=== PATIENT | female | born 1950 | race Caucasian/White ===

== ENCOUNTER 2016-08-08 14:47 | Inpatient (IN) ==
[2016-08-08] MEDS ORDERED: NS + KCL 40 MEQ 1,000 ML IV SCH ×2 (16:36→17:15)
[2016-08-08] MEDS: ZOFRAN IV PRN (17:12)
[2016-08-08] MEDS: SODIUM CHLORIDE 0.9% INJ SCH (17:12)
[2016-08-08] MEDS: PROTONIX IV SCH (17:12)
[2016-08-08] MEDS ORDERED: CARDIZEM 100 MG/NS 100 MG/100 ML IVPB IV SCH (17:19)
--- NOTE | 2016-08-08 17:34 | EKG Report ---
Test Performed on : 08/08/2016 5:10:24 PM Test Reason : HYPOKALEMIA Blood Pressure : / mmHG Vent. Rate : 094 BPM Atrial Rate : 096 BPM P-R Int : 000 ms QRS Dur : 072 ms QT Int : 446 ms P-R-T Axes : 000 051 092 degrees QTc Int : 557 ms sinus rhythm with sinus arryhmia and pacs Septal infarct , age undetermined ST \T\ T wave abnormality, consider anterolateral ischemia Prolonged QT Abnormal ECG No previous ECGs available Confirmed by Donavon Morales MD ([id number]) on 08/14/2016 10:14:29 PM
[2016-08-08 17:39] LABS: BASO% 0.1 % (0.0-0.8); HEMATOCRIT 32.3 % (37.0-47.0); HEMOGLOBIN 11.5 g/dL (12.0-16.0); IMM GRAN% 0.4 % (0.0-0.5); LYMPH# 3.11 X1000 (1.2-3.4); LYMPH% 12.4 % (20.5-51.1); MANUAL DIFF NEEDED? YES; MCH 30.8 PG (27-31); MCHC 35.6 g/dL (33-37); MCV 86.6 FL (81-99); MONO# 1.44 X1000 (0.11-0.59); MONO% 5.7 % (1.7-9.3); MPV 10.5 FL (7.4-10.4); NEUT% 81.4 % (42.2-75.2); PLT 434 X1000 (130-400); RBC 3.73 XMIL (4.2-5.4)
[2016-08-08 17:48] LABS: INR 1.15 (0.86-1.15)
[2016-08-08 17:53] LABS: AMYLASE 138 U/L (20-200); LIPASE 162 U/L (13-60)
[2016-08-08 17:55] LABS: ALBUMIN 4.3 g/dL (3.5-5.0); CALCIUM 7.2 mg/dL (8.8-10.2); TOTAL BILIRUBIN 0.2 mg/dL (0.20-1.00); TOTAL PROTEIN 8.3 g/dL (6.3-8.3)
[2016-08-08 18:00] LABS: MAGNESIUM 0.4 mg/dL (1.5-2.7); POTASSIUM 2.3 mmol/L (3.5-5.1)
[2016-08-08 18:32] LABS: LYMPHS 12 % (21-51)
[2016-08-08] MEDS: ZYVOX 600 MG/D5W 600 MG/300 ML IVPB IV SCH (18:40)
[2016-08-08] MEDS ORDERED: MAGNESIUM SULFATE 2 GM/S.W.I. 2 GM/50 ML IVPB IV ONE (18:47)
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
[2016-08-08 19:35] LABS: URINE SOURCE CATH
[2016-08-08 19:46] LABS: BILIRUBIN URINE 1+ (NEGATIVE); BLOOD URINE 1+ (NEGATIVE); CLARITY SL. CLOUDY (CLEAR); COLOR YELLOW; GLUCOSE URINE NEGATIVE (NEGATIVE); LEUKOCYTES URINE 1+ (NEGATIVE); NITRITE URINE NEGATIVE (NEGATIVE); PH URINE 6.5; PROTEIN URINE 1+(30 mg/dL) mg/dL (NEGATIVE); SP GRAVITY URINE 1.015; URINE MICROSCOPIC NEEDED? YES; UROBILINOGEN URINE NORMAL
[2016-08-08 19:57] LABS: URINE CAST NONE SEEN /LPF; URINE CRYSTAL URIC ACID PRESENT /HPF; URINE EPITHELIAL CELLS >10 /HPF (<10); URINE RBC <10 /HPF (<10)
[2016-08-08] MEDS: LOVENOX SUBQ SCH (20:14)
[2016-08-08] MEDS: ZOSYN 2.25 GM/NS 2.25 GM/50 ML IVPB IV SCH (20:15)
[2016-08-08] MEDS ORDERED: NS 1,000 ML IV ONE ×2 (20:30)
[2016-08-08] MEDS: ATIVAN IV PRN (21:12)
[2016-08-08] MEDS ORDERED: CALCIUM GLUCONATE 2 GM in NS 100 ML IV ONE (23:00)
[2016-08-08 23:14] LABS: MAGNESIUM 1.5 mg/dL (1.5-2.7); POTASSIUM 3.4 mmol/L (3.5-5.1)
[2016-08-08 23:31] LABS: CALCIUM 6.3 mg/dL (8.8-10.2)
[2016-08-08] MEDS ORDERED: CALCIUM GLUCONATE IV PUSH ONE ×2 (23:33→23:45)
[2016-08-09] MEDS: ZOSYN 2.25 GM/NS 2.25 GM/50 ML IVPB IV SCH ×4 (03:01→21:49)
[2016-08-09] MEDS: ATIVAN IV PRN (03:12)
[2016-08-09] MEDS: PROTONIX IV SCH ×2 (04:15→17:20)
[2016-08-09] MEDS: ZYVOX 600 MG/D5W 600 MG/300 ML IVPB IV SCH ×2 (05:16→20:10)
[2016-08-09 06:13] LABS: HEMATOCRIT 25.7 % (37.0-47.0); HEMOGLOBIN 8.5 g/dL (12.0-16.0); MCH 29.4 PG (27-31); MCHC 33.1 g/dL (33-37); MCV 88.9 FL (81-99); MPV 10.6 FL (7.4-10.4); RBC 2.89 XMIL (4.2-5.4)
[2016-08-09 06:30] LABS: AMYLASE 106 U/L (20-200); LIPASE 228 U/L (13-60)
[2016-08-09 07:12] LABS: ALBUMIN 3.1 g/dL (3.5-5.0); CALCIUM 6.6 mg/dL (8.8-10.2); MAGNESIUM 1.3 mg/dL (1.5-2.7); POTASSIUM 3.1 mmol/L (3.5-5.1); TOTAL BILIRUBIN 0.3 mg/dL (0.20-1.00)
[2016-08-09] MEDS ORDERED: CALCIUM GLUCONATE 2 GM in NS 100 ML IV ONE ×2 (07:45→09:15)
--- NOTE | 2016-08-09 09:13 | Diag Imaging Result Document ---
PROCEDURE NAME: ABDOMEN/PELVIS W/O CONTRAST - 08/08/2016 CT SCAN OF THE ABDOMEN AND PELVIS WITHOUT CONTRAST: CLINICAL HISTORY: Significant for previous hysterectomy, cholecystectomy, appendectomy, and colon surgery. FINDINGS: Preliminary interpretation was given by the senior construction project manager radiologist. There is a mild reticular nodular infiltrate within the right lower lobe and right middle lobe. No effusion. The heart size is within normal limits. There are cholecystectomy clips and bowel clips compatible with previous gastric bypass procedure. There is no bowel distention to suggest obstruction. No free air is appreciated. There is a Del Valle catheter within the bladder, which is decompressed. There is an unusual postoperative appearance to the cecum. There is an area of colonic narrowing versus nondistention within the distal transverse colon. Evaluation of the solid visceral organs is limited by lack of IV contrast. There is atherosclerotic calcification. IMPRESSION: 1. Indeterminate reticular nodular infiltrates within the right lower lobe and right middle lobe, which may indicate pneumonia. 2. Somewhat atypical appearance of the cecum and focal area of narrowing versus nondistention within the distal transverse colon. Correlation with colonoscopy could be considered. 3. Findings consistent with previous gastric bypass procedure with no evidence for obstruction. 4. Evaluation is limited by lack of IV and oral contrast, as per the ordering ED physician.
[2016-08-09] MEDS: NORCO-5 PO PRN (10:13)
[2016-08-09] MEDS ORDERED: D50W SYRINGE ONE (12:04)
[2016-08-09] MEDS ORDERED: EPINEPHRINE SYRINGE ONE (12:04)
[2016-08-09] MEDS: SODIUM BICARBONATE 8.4% 150 MEQ in D5W 1,000 ML IV SCH (14:10)
--- NOTE | 2016-08-09 14:48 | PROGRESS NOTE ---
DATE: 08/09/2016 SUBJECTIVE: Patient states she is feeling some better today. She denies any nausea, vomiting, palpitations. OBJECTIVE: Vital Signs: Blood pressure 83/56 with a heart rate of 74, respirations are 20, temperature is 98.2 degrees with room air saturations of 100%. Cardiovascular: Regular rate and rhythm. S1 and S2 appreciated. Pulmonary: Breath sounds are clear with no increased work of breathing noted. Gastrointestinal: Abdomen is soft, nontender, nondistended with bowel sounds in all 4 quadrants. Extremities: No clubbing, cyanosis, or edema. Calves are nontender. Pulses are palpable x4. DIAGNOSTICS: WBC is 14.8, with a hemoglobin of 8.5, hematocrit 25.7, and platelets of 261,000. Sodium is 137, potassium 3.1. BUN 38, creatinine 4.8, with a glucose of 105. Calcium is 6.6, corrected is around 6.9, lipase is 228. ASSESSMENT AND PLAN: 1. Atrial fibrillation with RVR. This has resolved. She is currently in sinus rhythm. She does have a history of atrial fibrillation, taking no medications and no anticoagulation. We will consult Cardiology for management. 2. Hypokalemia. Will trend electrolytes and replete as necessary. 3. Acute kidney injury. Creatinine is down to 4.8. We will consult Nephrology and continue with her current treatment in the interim. 4. Leukocytosis. This is improving. 5. Pancreatitis presumed due to elevated lipase. Will start giving some sips and advance diet as tolerated. CT of the abdomen and pelvis, Radiology read is pending. 6. Vomiting and diarrhea. This has resolved. 7. History of pulmonary embolus and DVT. Aware. 8. History of GI bleeding gastric ulcer. We will continue with Protonix. She is noted to have an hemoglobin and hematocrit of 8.5 and 25.7. This was 11.5 and 32 yesterday. She is 4 L positive. This is most likely from dilution. We will recheck this afternoon and trend labs. Dictated by SILVIA Waggoner for Christiano Robles MD cc: SILVIA Waggoner MD
[2016-08-09 15:19] LABS: HEMATOCRIT 24.6 % (37.0-47.0); HEMOGLOBIN 8.5 g/dL (12.0-16.0); MCH 30.9 PG (27-31); MCHC 34.6 g/dL (33-37); MCV 89.5 FL (81-99); MPV 10.4 FL (7.4-10.4); RBC 2.75 XMIL (4.2-5.4)
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
[2016-08-09 16:43] LABS: UR CREAT RANDOM 191.5 mg/dL (11-20); UR PROT RANDOM 76.3 mg/dL
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
[2016-08-09] MEDS: XANAX PO SCH ×2 (17:20→22:43)
[2016-08-09] MEDS: SODIUM CHLORIDE 0.9% INJ SCH (17:20)
[2016-08-09] MEDS: LOVENOX SUBQ SCH (18:36)
[2016-08-09] MEDS ORDERED: NEURONTIN PO SCH (21:00)
[2016-08-09] MEDS ORDERED: XANAX PO SCH (21:00)
[2016-08-10] MEDS: NORCO-5 PO PRN ×3 (01:18→15:10)
[2016-08-10] MEDS: ZOSYN 2.25 GM/NS 2.25 GM/50 ML IVPB IV SCH ×4 (02:25→20:44)
[2016-08-10] MEDS: XANAX PO SCH ×4 (04:44→23:20)
[2016-08-10] MEDS: PROTONIX IV SCH ×2 (04:44→17:22)
[2016-08-10] MEDS: SODIUM BICARBONATE 8.4% 150 MEQ in D5W 1,000 ML IV SCH ×2 (04:44→20:43)
[2016-08-10 05:05] LABS: HEMATOCRIT 21.9 % (37.0-47.0); HEMOGLOBIN 7.5 g/dL (12.0-16.0); MCH 30.4 PG (27-31); MCHC 34.2 g/dL (33-37); MCV 88.7 FL (81-99); MPV 10.4 FL (7.4-10.4); RBC 2.47 XMIL (4.2-5.4)
[2016-08-10 05:14] LABS: ALBUMIN 2.8 g/dL (3.5-5.0)
[2016-08-10 05:16] LABS: CALCIUM 6.7 mg/dL (8.8-10.2); POTASSIUM 2.3 mmol/L (3.5-5.1)
[2016-08-10] MEDS ORDERED: POTASSIUM CHLORIDE 20 MEQ/SWI 20 MEQ/100 ML IVPB ONE (05:28)
[2016-08-10] MEDS: POTASSIUM CHLORIDE 20 MEQ/SWI 20 MEQ/100 ML IVPB IV SCH ×4 (05:39→20:00)
[2016-08-10] MEDS: ZYVOX 600 MG/D5W 600 MG/300 ML IVPB IV SCH ×2 (05:40→19:26)
[2016-08-10] MEDS ORDERED: CALCIUM GLUCONATE 2 GM in NS 100 ML IV ONE (10:00)
--- NOTE | 2016-08-10 12:28 | PROGRESS NOTE ---
DATE: 08/10/2016 SUBJECTIVE: The patient notes that her abdominal pain is better. She still, however, is having some. She denies any current fevers or chills. She denies any dysuria or frequency. PHYSICAL: Temperature 98, pulse 58, respiratory 12. BP 102/70 to 92/61. Saturation 99% on room air. General: The patient is awake, alert. She is currently in no respiratory distress. She is sitting in bed watching television with her . HEENT: Normocephalic, atraumatic. Neck: Supple. CV: Regular rate. Chest relatively clear. Abdomen is soft, much less tender to palpation. Positive bowel sounds. Extremities: Moves all extremities. Neurologic: No changes. DIAGNOSTIC DATA: WBC 8, hemoglobin and hematocrit 7.5 and 21. Sodium 137, potassium 2.3, creatinine 3.6. BUN 29, calcium 6.7, albumin at 2.8. ASSESSMENT: 1. Acute renal failure. Continues to improve. We will continue sodium bicarb, IV fluids. 2. Hypokalemia. We will replace and recheck at 1. 3. Hypocalcemia. We will replace and recheck. 4. Anemia, likely secondary to her acute renal disease. We will type cross and transfuse one unit. We will check Hemoccult although she has no signs or symptoms currently of bleeding and further orders as needed. Hopefully, can move out of the ICU later this afternoon. We will advance diet as tolerated if her Hemoccults are negative. cc: Christiano Robles MD
[2016-08-10 13:38] LABS: CALCIUM 7.4 mg/dL (8.8-10.2)
[2016-08-10 13:40] LABS: POTASSIUM 2.2 mmol/L (3.5-5.1)
--- NOTE | 2016-08-10 14:50 | PROGRESS NOTE ---
DATE: 08/10/2016 SUBJECTIVE: Patient resting in bed. She states that she has been able to eat some, but she has not been able to sleep. OBJECTIVE: Vital signs: Temperature 98, pulse 58, respiratory rate 12, blood pressure 107/55, intake 2.8 liters, output 1.1 liters. General: Elderly female resting in bed. No acute distress. HEENT: Normocephalic, atraumatic. Oral mucosa is moist. Dentition poor. Neck: Supple. Trachea midline. No JVD noted. Cardiovascular: Irregular rate and rhythm. Rate controlled. No murmur appreciated. Pulmonary: Equal excursion. She is clear bilaterally. Abdomen: Soft, positive bowel sounds. Genitourinary: She has Del Valle catheter, yellow urine. Extremities: No clubbing, cyanosis, or edema. Is moving all extremities. Integumentary: Skin is warm and dry without rash or lesion. LABORATORY DATA: WBC of 8.6, hemoglobin 7.5, sodium 137, potassium 2.3, CO2 19 , BUN 29, creatinine 3.6, calcium 6.7. She had an FENA score of 0.2%. ASSESSMENT AND PLAN: 1. Acute kidney injury, likely secondary to fluid volume depletion. Her creatinine and renal function have improved significantly since admission with administration of IV fluids. We will continue these overnight. Check labs again in the morning. There is no indication for dialysis. 2. Electrolytes, acid-base balance. These are acceptable. We changed her over to bicarbonate yesterday. Her potassium is low, but this appears to have been repleted already by Primary. Check labs again in the morning. 3. Anemia. This has been stable, followed by Primary. 4. Leukocytosis, followed by Primary. Dictated by SILVIA Rodgers for Se Jeffries MD Data reviewed, discussed with Ryan on 08/10/16. I agree with the above assessment and plan of care. cc: Se Jeffries MD [facility]
[2016-08-10] MEDS ORDERED: KLOR-CON PO ONE (16:15)
[2016-08-10] MEDS ORDERED: NS 1,000 ML IV ONE (16:35)
[2016-08-10 18:56] LABS: OCCULT BLOOD 1 NEGATIVE (NEGATIVE)
[2016-08-10] MEDS: LOVENOX SUBQ SCH (19:26)
[2016-08-10] MEDS: NORCO-10 PO PRN (20:44)
[2016-08-10] MEDS: ZOFRAN IV PRN (23:53)
[2016-08-11] MEDS: NORCO-5 PO PRN ×3 (00:30→10:55)
[2016-08-11] MEDS: ZOSYN 2.25 GM/NS 2.25 GM/50 ML IVPB IV SCH ×4 (02:45→20:21)
[2016-08-11] MEDS: XANAX PO SCH ×4 (05:09→22:19)
[2016-08-11] MEDS: PROTONIX IV SCH (05:09)
[2016-08-11] MEDS: ZYVOX 600 MG/D5W 600 MG/300 ML IVPB IV SCH (05:30)
[2016-08-11 06:39] LABS: HEMATOCRIT 29.1 % (37.0-47.0); HEMOGLOBIN 9.6 g/dL (12.0-16.0); MCH 28.8 PG (27-31); MCV 87.4 FL (81-99); MPV 10.7 FL (7.4-10.4); RBC 3.33 XMIL (4.2-5.4)
[2016-08-11 07:00] LABS: ALBUMIN 2.5 g/dL (3.5-5.0); POTASSIUM 3.1 mmol/L (3.5-5.1); TOTAL BILIRUBIN 0.3 mg/dL (0.20-1.00); TOTAL PROTEIN 5.5 g/dL (6.3-8.3)
[2016-08-11 07:03] LABS: CALCIUM 6.5 mg/dL (8.8-10.2)
[2016-08-11] MEDS ORDERED: KLOR-CON PO SCH (09:00)
[2016-08-11] MEDS: CALTRATE 600 + D PO SCH ×2 (10:55→20:13)
[2016-08-11] MEDS ORDERED: CALCIUM GLUCONATE 2 GM in NS 100 ML IV ONE (12:30)
--- NOTE | 2016-08-11 13:14 | PROGRESS NOTE ---
DATE: 08/11/2016 SUBJECTIVE: Patient notes she feels much better this morning. She has not having any shaking chills. Denies any nausea, vomiting. Denies any chest pain. Denies any GI or issues currently. OBJECTIVE: Vital signs: Temperature 98 degrees, pulse 62, respiratory 14, BP 129/70, saturation 99% on room air. General: Patient is awake, alert, oriented. She is pleasant to talk with. Speech is regular. Memory is intact. Neck: Supple. CV: Regular rate. Chest: Relatively clear. Abdomen: Soft, nontender. Extremities: Moves all extremities. Neurologic: No changes. DIAGNOSTIC DATA: CBC: Improved hemoglobin and hematocrit at 9 and 29 after 1 unit transfusion. Hypokalemia, improving; potassium currently 3.1. Calcium at 6.5. ASSESSMENT: 1. Hypocalcemia. We will start patient on calcium 600 twice a day. 2. Moderate protein calorie malnutrition. Continue to encourage p.o. intake. 3. Acute renal failure. Serum creatinine continues to improve. Was 6.0 on admit, currently at 2.1. 4. Metabolic acidosis secondary to her renal failure. Carbon dioxide was 12, currently is 26; therefore, we will stop her bicarb drip. 5. Hypokalemia. Potassium was 2.2, currently is 3.1. Will replace p.o. 6. Anemia secondary to her acute renal failure. She has no signs nor symptoms of bleeding. She has been heme negative so far. Hemoglobin and hematocrit are more stable after 1 unit of transfusion. PLAN: We will transfer patient to the floor. Will replace her potassium orally. Will replace her calcium orally. Will recheck both of these in the a.m. Should it be improved even further, hopefully we can discharge her home. At this point will stop her linezolid and only continue her Zosyn. We will not continue IV fluids at this point as she is eating and drinking well. TIME SPENT: 40 minutes spent in total care. cc: Christiano Robles MD
[2016-08-11] MEDS ORDERED: NS 500 ML ONE (20:08)
[2016-08-11] MEDS: NORCO-10 PO PRN (20:12)
[2016-08-11] MEDS: TENORMIN PO SCH ×2 (20:12→20:17)
[2016-08-11] MEDS: ZOFRAN IV PRN (20:13)
[2016-08-11] MEDS: LOVENOX SUBQ SCH (20:13)
[2016-08-12] MEDS: NORCO-10 PO PRN (03:36)
[2016-08-12] MEDS: XANAX PO SCH ×3 (03:37→11:03)
[2016-08-12] MEDS: ZOSYN 2.25 GM/NS 2.25 GM/50 ML IVPB IV SCH (03:51)
[2016-08-12 06:02] LABS: HEMATOCRIT 31.8 % (37.0-47.0); HEMOGLOBIN 10.5 g/dL (12.0-16.0); MCH 29.5 PG (27-31); MCV 89.3 FL (81-99); MPV 10.6 FL (7.4-10.4); RBC 3.56 XMIL (4.2-5.4)
[2016-08-12 06:24] LABS: ALBUMIN 2.5 g/dL (3.5-5.0); POTASSIUM 2.8 mmol/L (3.5-5.1)
[2016-08-12] MEDS ORDERED: KLOR-CON PO ONE (06:30)
[2016-08-12] MEDS ORDERED: CALCIUM GLUCONATE 2 GM in NS 100 ML IV ONE ×2 (06:32→08:30)
[2016-08-12 07:45] VITALS: BP 116/79
[2016-08-12] MEDS: CALTRATE 600 + D PO SCH (08:34)
[2016-08-12] MEDS: TENORMIN PO SCH (08:34)
--- NOTE | 2016-08-13 06:31 | DISCHARGE SUMMARY ---
ADMISSION DATE: 08/08/2016 DISCHARGE DATE: 08/12/2016 DISCHARGE DIAGNOSES: 1. Acute renal failure. Serum creatinine 6.0 on admit, 1.8 on discharge secondary to volume depletion. 2. Significant volume depletion resolved. 3. Hypokalemia. Potassium remained difficult to replace during the hospital stay. Currently she will be discharged home on potassium. 4. Hypocalcemia. Calcium was replaced multiple times during the hospital. She will also be discharged home on calcium. 5. Acute volume depletion. BUN was 43 on admit, 13 on discharge. 6. Metabolic acidosis secondary to acute renal failure and volume depletion. Her carbon dioxide was 12 on admit. She was given sodium bicarb drip via IV. Resolved on discharge. 7. Atrial fibrillation with rapid ventricular response. Easily controlled. 8. Leukocytosis resolved. 9. Acute pancreatitis with elevated lipase resolved. 10. Vomiting and diarrhea resolved. 11. History of pulmonary embolus, noncontributory. 12. Anemia. She did require 1 unit transfusion as her hemoglobin and hematocrit had dropped. This was felt to be secondary to her acute renal failure as well as volume repletion. 13. Chronic neuropathy. 14. Chronic anxiety and depression. PRIMARY CARE PHYSICIAN: Dr. Douglas Bahena. CONSULTATIONS: Nephrology. BRIEF HOSPITAL COURSE: The patient is a 66-year-old female who was admitted as on the [facility] and treated in usual fashion. She was placed on IV fluids, IV antibiotics, and kept NPO. Her kidney function slowly started to improve. Nephrology was consulted. Placed her on sodium bicarb, given her acute metabolic acidosis. Over the next few days this continued to improve. Her creatinine decreased to 2.1. Her bicarb increased to 26, her sodium bicarb drip was stopped and both continued to improve. She did have trouble with potassium and calcium during the hospital stay and required multiple replacement attempts. On discharge, both are still low but she will be discharged home on p.o. Her hemoglobin and hematocrit continued to climb after her transfusion after her renal function improved; on discharge was 10 and 31. DISPOSITION: The patient will be discharged home one potassium 40 once a day, calcium with vitamin D 600 b.i.d. She will follow up in 2-[address] Bahena to recheck both of these. No other changes made on her chronic home medications. She was not restarted on her Restoril, Seroquel, or BuSpar while she was in the hospital. However she did continue her atenolol 50 b.i.d., Xanax, gabapentin 600 b.i.d., and Hosmer p.r.n. TIME SPENT WITH PATIENT: 35 minutes was spent in discharge planning and instructions. cc: Christiano Robles MD
--- NOTE | 2016-08-14 09:04 | ECHO REPORT ---
PROCEDURE NAME: Echo Spec/Color Dop W/O Contra - 08/09/2016 MEASUREMENTS: Left ventricular end-diastolic diameter 4.1, systolic diameter 2.6, posterior wall thickness 0.8, septal thickness 0.8, left atrium 3.2, aortic root 3.1. SUMMARY: 1. Adequate quality study. Study submitted for interpretation on 08/13/2016. 2. Aortic valve is trileaflet and opens normally on 2-dimensional images. Mitral, tricuspid and pulmonic valves are without structural abnormality with trace mitral regurgitation and trace tricuspid regurgitation. The estimated systolic PA pressure by Doppler is 55-60 mmHg. Moderate to severe pulmonary hypertension suggested. The aortic root is normal in size. 3. Normal left ventricular dimensions demonstrated. Estimated left ejection fraction is 65%. No regional wall motion abnormalities are evident. Left atrium, right atrium, and right ventricle are normal in size with preserved right ventricular systolic function. 4. No pericardial effusion. 5. Appearance of inferior vena cava suggests normal central venous pressure. 6. Sinus rhythm on study. CONCLUSIONS: 1. Trace mitral regurgitation and trace tricuspid regurgitation. 2. Moderate to severe pulmonary hypertension. 3. Normal left ventricular function without wall motion abnormalities evident. cc: MD Cande Patel CRNP
== END 2016-08-12 11:35 | disposition home or self-care (01) ==
LOC: P.DIRADM 14:47 → P.MEDSURG 14:51 → P.ICU 17:49 → P.MEDSURG 08-11 17:46
PROVIDERS: ATTEND Family Medicine

== ENCOUNTER 2016-09-11 11:16 | Inpatient (IN) ==
[2016-09-11] MEDS ORDERED: TYLENOL PO PRN (15:10)
[2016-09-11] MEDS ORDERED: ZOFRAN IV PRN (15:10)
--- NOTE | 2016-09-11 15:46 | Diag Imaging Result Doc PS360 ---
EXAM: HEAD W/O CONTRAST HISTORY: ams TECHNIQUE: Dose reduction protocol COMPARISON: None. FINDINGS: No parenchymal hemorrhage. No epidural or subdural hematoma. No subarachnoid hemorrhage. No mass identified on this noncontrasted exam. No hydrocephalus. No sinus opacification. IMPRESSION: No hemorrhage. Negative brain CT without contrast. Electronically signed by Tho Barajas 09/11/2016 3:44 PM
[2016-09-11 16:00] LABS: MANUAL DIFF NEEDED? NO
--- NOTE | 2016-09-11 16:12 | HISTORY AND PHYSICAL ---
PRIMARY CARE PHYSICIAN: Dr. Douglas Bahena. CHIEF COMPLAINT: Altered mental status and low calcium. HISTORY OF PRESENTING ILLNESS: This is a 66-year-old female who presents as a direct admit from her primary care physician's office. The patient was in the hospital on 08/08/2016 through 08/12/2016 with atrial fibrillation with RVR, acute renal failure, some hypokalemia and hypocalcemia. Discharged home on calcium replacement. Yesterday presented to her primary care physician's office with increased confusion, states that she has not been taking her calcium because it was upsetting her stomach, but that she had been taking the rest of her medication. Labs per the primary care physician in his office showed a corrected calcium of 6. She stated that she had no memory of being in the hospital on 08/08/2016 through 08/12/2016 so the primary care physician requested that she be admitted for a workup for altered mental status and hypokalemia. It is noted upon entering the room that the patient appears to be jaundiced. So, we will do a complete workup with further orders once we obtain all of her laboratory and radiologic results, but she will be admitted for further evaluation and treatment. PAST MEDICAL HISTORY: Atrial fibrillation, PE and DVT, GERD, hypocalcemia, pancreatitis and GI bleed. PAST SURGICAL HISTORY: Multiple abdominal surgeries, bilateral lobectomy and a hysterectomy. FAMILY HISTORY: Noncontributory. SOCIAL HISTORY: She currently lives with family. Denies any tobacco, alcohol, or illicit drug use. ALLERGIES: Levaquin and sulfa. HOME MEDICATIONS: 1. Xanax 1 mg p.o. t.i.d. 2. Atenolol 50 mg p.o. b.i.d. 3. Caltrate 600+ D 1 p.o. b.i.d. 4. Nexium 1 p.o. daily. 5. Gabapentin 600 mg p.o. b.i.d. 6. Morphine sulfate 15 mg p.o. t.i.d. 7. Seroquel 25 mg p.o. at bedtime. LABORATORY DATA: Pending. A CBC and a CMP and a CT of the head and EKG. REVIEW OF SYSTEMS: She denies any fever, chills, blurred vision, dizziness, chest pain, coughing, shortness of breath, constipation, diarrhea, burning or hurting with urination. PHYSICAL EXAMINATION: GENERAL: This is a 66-year-old female who is lying in the bed, answers questions appropriately. HEENT: Normocephalic, atraumatic. The pupils are equal, round, and reactive to light. Her sclerae appears to be jaundiced. Her skin appears to be jaundiced. Oropharynx and nares are clear. NECK: Supple. LUNGS: Clear to auscultation bilaterally with equal lung expansion and chest wall movement. To her upper lobes, again she has had bilateral lobectomy. HEART: With an irregular rhythm. Controlled rate, but we will obtain an EKG to verify that. ABDOMEN: Soft, nontender, nondistended. Bowel sounds are present x4 quadrants. EXTREMITIES: No clubbing, cyanosis, or edema. NEUROLOGICAL: The cranial nerves 2-12 appear grossly intact. ASSESSMENT: 1. Altered mental status. 2. Hypocalcemia per her primary care physician's labs. 3. Jaundice. 4. Atrial fibrillation. PLAN: She has been admitted to the medical unit. Placed on telemetry. Healthy heart diet. We are going to obtain an EKG, CBC, CMP, CT of the head. Continue home medications and further orders once we can review labs and radiologic findings. Dictated by SILVIA Hess for Christiano Robles MD cc: SILVIA Hess MD David Francis, MD
[2016-09-11 16:14] LABS: BASO% 0.1 % (0.0-0.8); EOS# 0.04 X1000 (0.0-0.7); EOS% 0.5 % (0.0-10.0); HEMATOCRIT 26.6 % (37.0-47.0); HEMOGLOBIN 8.7 g/dL (12.0-16.0); IMM GRAN# 0.05 X1000 (0.0-0.04); IMM GRAN% 0.6 % (0.0-0.5); LYMPH# 1.47 X1000 (1.2-3.4); LYMPH% 18.4 % (20.5-51.1); MCH 30.2 PG (27-31); MCHC 32.7 g/dL (33-37); MCV 92.4 FL (81-99); MONO# 0.68 X1000 (0.11-0.59); MONO% 8.5 % (1.7-9.3); MPV 10.4 FL (7.4-10.4); NEUT% 71.9 % (42.2-75.2); PLT 242 X1000 (130-400); RBC 2.88 XMIL (4.2-5.4)
[2016-09-11 16:55] LABS: POTASSIUM 3.3 mmol/L (3.5-5.1); TOTAL BILIRUBIN 0.3 mg/dL (0.20-1.00); TOTAL PROTEIN 6.1 g/dL (6.3-8.3)
[2016-09-11] MEDS ORDERED: CALCIUM GLUCONATE 2 GM in NS 100 ML IV ONE (17:30)
[2016-09-11] MEDS: NEURONTIN PO SCH (22:03)
[2016-09-11] MEDS: SEROQUEL PO SCH (22:03)
[2016-09-11] MEDS: MORPHINE IR PO SCH (22:03)
[2016-09-11] MEDS: CALTRATE 600 + D PO SCH (22:04)
[2016-09-11] MEDS: XANAX PO SCH (22:04)
[2016-09-11] MEDS: TENORMIN PO SCH (22:04)
[2016-09-12 06:11] LABS: HEMATOCRIT 25.3 % (37.0-47.0); MCH 29.5 PG (27-31); MCHC 31.6 g/dL (33-37); MCV 93.4 FL (81-99); RBC 2.71 XMIL (4.2-5.4)
[2016-09-12] MEDS: PRILOSEC PO SCH (06:11)
[2016-09-12 06:30] LABS: ALBUMIN 2.4 g/dL (3.5-5.0); POTASSIUM 3.5 mmol/L (3.5-5.1); TOTAL BILIRUBIN 0.2 mg/dL (0.20-1.00); TOTAL PROTEIN 5.4 g/dL (6.3-8.3)
[2016-09-12] MEDS ORDERED: CALCIUM GLUCONATE 2 GM in NS 100 ML IV ONE (06:31)
[2016-09-12 06:32] LABS: CALCIUM 6.7 mg/dL (8.8-10.2)
[2016-09-12] MEDS ORDERED: TYLENOL PO PRN (06:32)
[2016-09-12] MEDS ORDERED: MAGNESIUM SULFATE 2 GM/S.W.I. 2 GM/50 ML IVPB IV ONE (06:32)
[2016-09-12] MEDS ORDERED: ZOFRAN IV PRN (06:32)
[2016-09-12 06:33] LABS: MAGNESIUM 0.5 mg/dL (1.5-2.7)
--- NOTE | 2016-09-12 06:51 | PROGRESS NOTE ---
DATE: 09/12/2016 SUBJECTIVE: The patient notes that she is feeling a little bit better. Denies any confusion or disorientation. States that she is in the hospital. Notes that she stopped taking her calcium secondary to it making her nauseated. PHYSICAL EXAMINATION: Vital Signs: Reviewed. Temperature 97.6 degrees, pulse 74, respiratory rate 19, blood pressure 101/66, saturation 100% on room air. General: Patient is awake, alert, oriented. She is currently in no respiratory distress. Pleasant. Speech is regular. Memory is intact. Neck: Supple. Cardiovascular: Regular rate. Chest: Clear, nonlabored. Abdomen: Soft. Extremities: Moves all extremities. Neurologic: No focal changes. Skin: Warm and dry. No rashes. LABORATORY STUDIES: Hemoglobin and hematocrit 8 and 25. Potassium 3.5. Creatinine 1.1. Calcium 6.7. Magnesium 0.5. Albumin 2.4. ASSESSMENT: 1. Hypomagnesemia. Will replace and recheck this afternoon. 2. Hypocalcemia. Also will replace IV and recheck this afternoon. 3. Altered mental status, metabolic encephalopathy secondary to hypocalcemia, resolved. 4. History of atrial fibrillation. Stable. 5. Hypokalemia, resolved. 6. Moderate protein calorie malnutrition. We will continue to encourage p.o. 7. Anemia of chronic disease. PLAN: As noted above. Replace calcium. Replace magnesium. Continue to follow. Further orders as needed. cc: Christiano Robles MD
[2016-09-12] MEDS: TUMS PO SCH ×2 (08:30→20:22)
[2016-09-12] MEDS: NEURONTIN PO SCH ×2 (08:30→20:21)
[2016-09-12] MEDS: XANAX PO SCH ×3 (08:30→20:23)
[2016-09-12] MEDS: MORPHINE IR PO SCH ×3 (08:30→20:22)
[2016-09-12] MEDS: TENORMIN PO SCH ×2 (08:30→20:23)
[2016-09-12] MEDS: CALTRATE 600 + D PO SCH ×2 (08:31→20:23)
[2016-09-12] MEDS: SEROQUEL PO SCH (20:23)
[2016-09-13] MEDS: PRILOSEC PO SCH (06:46)
[2016-09-13 07:07] LABS: HEMOGLOBIN 8.1 g/dL (12.0-16.0); MCH 29.3 PG (27-31); MCHC 31.2 g/dL (33-37); MCV 94.2 FL (81-99); MPV 10.8 FL (7.4-10.4); RBC 2.76 XMIL (4.2-5.4)
[2016-09-13 07:23] LABS: ALBUMIN 2.5 g/dL (3.5-5.0); POTASSIUM 3.6 mmol/L (3.5-5.1); TOTAL BILIRUBIN 0.2 mg/dL (0.20-1.00); TOTAL PROTEIN 5.2 g/dL (6.3-8.3)
[2016-09-13] MEDS: TUMS PO SCH ×2 (09:12→20:10)
[2016-09-13] MEDS: TENORMIN PO SCH ×2 (09:12→20:09)
[2016-09-13] MEDS: CALTRATE 600 + D PO SCH ×2 (09:12→20:09)
[2016-09-13] MEDS: NEURONTIN PO SCH ×2 (09:13→20:08)
[2016-09-13] MEDS: XANAX PO SCH ×3 (09:13→20:09)
[2016-09-13] MEDS: MORPHINE IR PO SCH ×3 (09:13→20:08)
[2016-09-13] MEDS ORDERED: CALCIUM GLUCONATE 4.65 MEQ in NS 50 ML IV ONE ×2 (11:10→13:00)
[2016-09-13] MEDS ORDERED: MAGNESIUM SULFATE 4 GM/S.W.I. 4 GM/100 ML IVPB IV ONE ×2 (11:10→12:45)
[2016-09-13] MEDS: SLOW-MAG PO SCH (11:46)
[2016-09-13] MEDS ORDERED: TORADOL IV ONE (11:58)
--- NOTE | 2016-09-13 13:19 | PROGRESS NOTE ---
DATE: 09/13/2016 SUBJECTIVE: The patient is resting quietly in bed. No focal complaints voiced at this time. OBJECTIVE: Vital Signs: Temperature 97.9 degrees, pulse 84, respirations 18, blood pressure 128/84, satting 99% on room air. General: This is a 66-year-old, female lying in the bed. HEENT: Normocephalic and atraumatic. Pupils are equal, round, reactive to light. Extraocular movements are intact. Oropharynx and nares are clear. Neck: Supple. Lungs: Clear to auscultation bilaterally with equal lung expansion and chest wall movement. Heart: With regular rate and rhythm. No murmurs, rubs, or gallops. Abdomen: Soft, nontender, nondistended. Bowel sounds are present x4 quadrants. Extremities: No clubbing, cyanosis, or edema. Neurological: The cranial nerves 2-12 appear grossly intact. LABORATORY DATA: Showed a white blood cell count of 6.39, hemoglobin of 8.1, hematocrit 26, platelets 231. Sodium 143, potassium 3.6, chloride 109, CO2 20, BUN of 5, creatinine 1.0, glucose 127, calcium 7, magnesium of 1.0. ASSESSMENT AND PLAN: 1. Hypomagnesemia. We will replace and recheck in the morning. 2. Hypocalcemia has improved, but we will continue her intravenous and oral calcium. Recheck labs in morning. 3. Altered mental status. Metabolic encephalopathy improved. 4. History of atrial fibrillation, stable. 5. Anemia of chronic disease, stable. DISPOSITION: Hopefully home in the next 1-2 days. Patient's family is interested in patient having neurological workup, but this can be done on an outpatient basis as she has seen Dr. Waggoner, neurology, in the past. Head CT was clear. We will recheck labs in the a.m. and hopefully home in the next 1-2 days. Dictated by SILVIA Hess for Johnson Jaimes MD cc: SILVIA Hess MD pt examined, agree with above, hopefully home in am [facility]
[2016-09-13] MEDS ORDERED: NS 250 ML ONE (13:25)
[2016-09-13] MEDS: SEROQUEL PO SCH (20:09)
[2016-09-14 06:09] LABS: MANUAL DIFF NEEDED? NO
[2016-09-14 06:16] LABS: BASO% 0.2 % (0.0-0.8); EOS# 0.18 X1000 (0.0-0.7); HEMATOCRIT 27.9 % (37.0-47.0); HEMOGLOBIN 8.6 g/dL (12.0-16.0); IMM GRAN# 0.02 X1000 (0.0-0.04); IMM GRAN% 0.3 % (0.0-0.5); LYMPH# 1.78 X1000 (1.2-3.4); LYMPH% 29.3 % (20.5-51.1); MCH 29.5 PG (27-31); MCHC 30.8 g/dL (33-37); MCV 95.5 FL (81-99); MONO# 0.67 X1000 (0.11-0.59); MPV 10.6 FL (7.4-10.4); NEUT% 56.2 % (42.2-75.2); PLT 238 X1000 (130-400); RBC 2.92 XMIL (4.2-5.4)
[2016-09-14 06:37] LABS: CALCIUM 7.3 mg/dL (8.8-10.2); MAGNESIUM 2.2 mg/dL (1.5-2.7); POTASSIUM 4.6 mmol/L (3.5-5.1)
[2016-09-14] MEDS: PRILOSEC PO SCH (06:41)
[2016-09-14] MEDS: SLOW-MAG PO SCH (09:05)
[2016-09-14] MEDS: CALTRATE 600 + D PO SCH ×2 (09:05→20:05)
[2016-09-14] MEDS: XANAX PO SCH ×3 (09:05→20:05)
[2016-09-14] MEDS: NEURONTIN PO SCH ×2 (09:05→20:05)
[2016-09-14] MEDS: MORPHINE IR PO SCH ×3 (09:05→20:05)
[2016-09-14] MEDS: TUMS PO SCH ×2 (09:06→20:05)
[2016-09-14] MEDS: TENORMIN PO SCH ×2 (09:06→20:05)
[2016-09-14] MEDS ORDERED: CALCIUM GLUCONATE 4.65 MEQ in NS 50 ML IV ONE (13:44)
--- NOTE | 2016-09-14 14:11 | PROGRESS NOTE ---
DATE: 09/14/2016 SUBJECTIVE: The patient has no focal complaints. OBJECTIVE: Blood pressure 137/77, heart rate of 89, respiratory 18, temperature 94 degrees, 94% on room air. Cardiovascular: Regular rate and rhythm. Pulmonary: Bilateral breath sounds. Clear to auscultation. GI soft, nontender, nondistended. Bowel sounds are positive. LABORATORY DATA: Hemoglobin and hematocrit 8 and 27. White count is normal. Platelets okay. BUN and creatinine are 12 and 1.1. Potassium is up to 7.3, magnesium is 2.2, potassium 4.6. PROBLEM LIST: 1. Hypomagnesemia. It is corrected. 2. Hypocalcemia. We will continue to increase treatment; is slowly improving. 3. Altered mentation appears to have resolved. She has intermittent episodes that sound more psychiatric than anything else where she gets confused and acts out of character according to her . He denies that this is related to any seizure activity, but we will continue to follow. 4. Atrial fibrillation appears to be stable. DISPOSITION: We discussed about discharge today. She is uncomfortable going home because she was just discharged recently, so we will watch her another day and follow clinically. cc: Johnson Jaimes MD
[2016-09-14] MEDS: SEROQUEL PO SCH (20:05)
[2016-09-15] MEDS: PRILOSEC PO SCH (06:13)
[2016-09-15 06:59] LABS: HEMATOCRIT 28.9 % (37.0-47.0); HEMOGLOBIN 9.2 g/dL (12.0-16.0); MCH 30.7 PG (27-31); MCHC 31.8 g/dL (33-37); MCV 96.3 FL (81-99); MPV 10.8 FL (7.4-10.4)
[2016-09-15 07:13] LABS: CALCIUM 8.3 mg/dL (8.8-10.2); MAGNESIUM 1.8 mg/dL (1.5-2.7); POTASSIUM 4.8 mmol/L (3.5-5.1)
--- NOTE | 2016-09-15 08:09 | Diag Imaging Result Doc PS360 ---
EXAM: CHEST-PORTABLE HISTORY: dyspnea TECHNIQUE: Portable COMPARISON: 08/07/2016 FINDINGS: The lungs are well expanded. The heart is not enlarged. The vessels are not distended. No pneumonia. No pleural effusions identified. Mild scoliosis. IMPRESSION: Negative chest Electronically signed by Tho Barajas 09/15/2016 8:06 AM
[2016-09-15] MEDS: XANAX PO SCH (08:32)
[2016-09-15] MEDS: TUMS PO SCH (08:32)
[2016-09-15] MEDS: TENORMIN PO SCH (08:32)
[2016-09-15] MEDS: CALTRATE 600 + D PO SCH (08:33)
[2016-09-15] MEDS: MORPHINE IR PO SCH ×2 (08:33→12:11)
[2016-09-15] MEDS: NEURONTIN PO SCH (08:33)
[2016-09-15] MEDS: SLOW-MAG PO SCH (08:33)
[2016-09-15 11:16] VITALS: BP 117/73
--- NOTE | 2016-09-15 21:45 | DISCHARGE SUMMARY ---
ADMISSION DATE: 09/11/2016 DISCHARGE DATE: 09/15/2016 ADMISSION DIAGNOSES: 1. Altered mental status. 2. Hypocalcemia. 3. Jaundice. 4. Atrial fibrillation. DISCHARGE DIAGNOSES: 1. Hypocalcemia. 2. Altered mental status, resolved. 3. Atrial fibrillation, stable. Rate controlled. SUMMARY OF FINDINGS: This is a 66-year-old female who presented as a direct admit from her primary care physician's office where she had been in the hospital on 08/08/2016 through 08/12/2016 with atrial fibrillation with RVR and acute renal failure, hypokalemia and hypocalcemia. She had been discharged home on some calcium replacement, but stated that it upset her stomach and she had stopped taking the rest of it. When she was in her doctor's office on the day of arrival, she had labs drawn that showed a corrected calcium of 6. Stated that she had no memory of being in the hospital on 08/08-08/12, so the primary care physician needed her worked up for altered mental status and her hypocalcemia. Her labs showed a calcium on arrival of 6. She had a magnesium of 0.5. Potassium was 3.3, and those have all been supplemented with IV calcium gluconate, IV magnesium. She was also placed on p.o. calcium carbonate and Slow-Mag daily. Her liver functions have been within normal limits. She is much more alert, awake. We did a chest x- ray this morning that showed a negative chest, so it is felt today her calcium is at 8.3, that she can safely be discharged home today. DISCHARGE MEDICATIONS: 1. Xanax 1 mg p.o. t.i.d. 2. Tenormin 50 mg p.o. b.i.d. 3. Calcium carbonate 600 with D, 1 p.o. b.i.d. 4. Nexium 1 p.o. daily. 5. Gabapentin 600 mg p.o. b.i.d. 6. Slow-Mag 64 mg p.o. daily, #30 with no refills. 7. Morphine sulfate 15 mg p.o. t.i.d. 8. Seroquel 25 mg p.o. at bedtime. FOLLOWUP: She will follow with her primary care physician in 1-2 weeks and call the office for an appointment. We will also make her a referral to Neurology, Dr. Waggoner 1-2 weeks from discharge. All discharge instructions have been reviewed with the patient and she verbalized understanding. TIME SPENT: 35 minute discharge. Dictated by SILVIA Hess for Johnson Jaimes MD cc: SILVIA Hess MD David Francis, MD Amit Arora, MD
== END 2016-09-15 14:33 | disposition home or self-care (01) ==
LOC: P.DIRADM → SUATTDRO 11:16 → OBSVTOIN 11:16 → P.MEDSURG 12:57
PROVIDERS: ATTEND Internal Medicine

== ENCOUNTER 2019-03-11 10:55 | Inpatient (IN) ==
[2019-03-11] MEDS ORDERED: ATIVAN IV ONE (11:17)
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
--- NOTE | 2019-03-11 11:43 | Diag Imaging Result Doc PS360 ---
EXAM: CHEST-2 VIEWS 03/11/2019 HISTORY: chest pain TECHNIQUE: PA and lateral chest COMMENT: There is no evidence of acute cardiac or pulmonary disease. The opacity in the right lower lobe which was present on 12/19/2016 has resolved. IMPRESSION: No evidence of acute disease. Electronically signed by Anand Uriostegui 03/11/2019 11:40 AM
[2019-03-11 11:51] LABS: BASO# 0.01 X1000 (0.0-0.2); BASO% 0.1 % (0.0-0.8); EOS# 0.04 X1000 (0.0-0.7); EOS% 0.6 % (0.0-10.0); HEMOGLOBIN 10.8 g/dL (12.0-16.0); IMM GRAN# 0.02 X1000 (0.0-0.04); IMM GRAN% 0.3 % (0.0-0.5); LYMPH# 1.55 X1000 (1.2-3.4); LYMPH% 22.8 % (20.5-51.1); MCH 30.3 PG (27-31); MCHC 33.8 g/dL (33-37); MCV 89.9 FL (81-99); MONO# 0.65 X1000 (0.11-0.59); MONO% 9.6 % (1.7-9.3); MPV 10.7 FL (7.4-10.4); NEUT# 4.53 X1000 (1.4-6.5); NEUT% 66.6 % (42.2-75.2); PLT 207 X1000 (130-400); RBC 3.56 XMIL (4.2-5.4); RDW 15.4 % (11.5-14.5)
[2019-03-11 11:55] LABS: INR 1.05; PROTIME 13.9 Seconds (11.0-16.0)
[2019-03-11 11:56] LABS: PTT 25.9 Seconds (22.3-41.8)
[2019-03-11 12:19] LABS: ALB/GLOB RATIO 1.5; ALBUMIN 4.1 g/dL (3.5-5.0); POTASSIUM 2.7 mmol/L (3.5-5.1); TOTAL BILIRUBIN 0.24 mg/dL (0.20-1.00); TOTAL PROTEIN 6.8 g/dL (6.3-8.3)
[2019-03-11 12:21] LABS: CALCIUM 6.9 mg/dL (8.8-10.2)
[2019-03-11] MEDS ORDERED: OSCAL 500 PO ONE (12:29)
[2019-03-11] MEDS ORDERED: NS 1,000 ML IV ONE (13:07)
--- NOTE | 2019-03-11 13:07 | EKG Report ---
Test Performed on : 03/11/2019 11:09:33 AM Test Reason : sob Blood Pressure : / mmHG Vent. Rate : 110 BPM Atrial Rate : 110 BPM P-R Int : 138 ms QRS Dur : 078 ms QT Int : 352 ms P-R-T Axes : 053 026 053 degrees QTc Int : 476 ms Sinus tachycardia. with premature atrial complexes. Nonspecific ST abnormality Abnormal ECG When compared with ECG of 21-DEC-2016 04:32, Nonspecific T wave abnormality no longer evident in Inferior leads Nonspecific T wave abnormality no longer evident in Anterior leads Unconfirmed Result
[2019-03-11] MEDS ORDERED: MAGNESIUM SULFATE 1 GM/D5W 1 GM/100 ML IVPB IV ONE (14:08)
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
[2019-03-11 14:18] LABS: FREE T4 1.04 ng/dL (0.93-1.70); TSH 1.58 uIUmL (0.27-4.20)
--- NOTE | 2019-03-11 14:42 | Diag Imaging Result Doc PS360 ---
EXAM: LUNG SCAN / VQ 03/11/2019 HISTORY: sob TECHNIQUE: Ventilation/perfusion lung scan, 39.5 mCi of technetium 99m DTPA aerosol and 5.3 mCi of technetium 99m MAA intravenously. COMMENT: There is no evidence of ventilation/perfusion mismatch. There are no perfusion defects. IMPRESSION: Normal study. Electronically signed by Anand Uriostegui 03/11/2019 2:40 PM
[2019-03-11] MEDS: POTASSIUM CHLORIDE 40 MEQ in 1/2 NS 250 ML IV SCH (14:53)
[2019-03-11] MEDS ORDERED: TYLENOL PO PRN (15:11)
[2019-03-11] MEDS ORDERED: ZOFRAN IV PRN (15:11)
[2019-03-11] MEDS ORDERED: PHENERGAN PO PRN (15:11)
[2019-03-11] MEDS ORDERED: AMBIEN PO PRN (15:11)
[2019-03-11] MEDS: LOVENOX SUBQ SCH (18:12)
[2019-03-11] MEDS: NORCO-10 PO PRN (19:41)
[2019-03-11] MEDS ORDERED: NEURONTIN PO SCH (21:00)
[2019-03-11] MEDS: ROBAXIN PO SCH (21:38)
[2019-03-11] MEDS: ZOLOFT PO SCH (21:39)
[2019-03-11] MEDS: XANAX PO SCH (21:39)
[2019-03-11] MEDS: SEROQUEL PO SCH (21:39)
[2019-03-11 22:01] LABS: URINE SOURCE CLEAN CATCH
[2019-03-11 22:12] LABS: BILIRUBIN URINE NEGATIVE (NEGATIVE); BLOOD URINE NEGATIVE (NEGATIVE); COLOR YELLOW; GLUCOSE URINE NEGATIVE (NEGATIVE); KETONE URINE NEGATIVE (NEGATIVE); LEUKOCYTES URINE NEGATIVE (NEGATIVE); NITRITE URINE NEGATIVE (NEGATIVE); PH URINE 6.5; PROTEIN URINE TRACE mg/dL (NEGATIVE); SP GRAVITY URINE 1.006; TURBIDITY URINE CLEAR (CLEAR); UROBILINOGEN URINE NORMAL (NORMAL)
[2019-03-11 22:16] LABS: UR EPITHELIAL CELLS <10 /HPF (<10); URINE BACTERIA NEGATIVE /HPF; URINE RBC <10 /HPF (<10); URINE WBC <10 /HPF (<10)
[2019-03-12] MEDS: POTASSIUM CHLORIDE 40 MEQ in 1/2 NS 250 ML IV SCH (00:34)
[2019-03-12] MEDS: NS 1,000 ML IV SCH ×3 (00:35→23:16)
[2019-03-12 07:48] LABS: INR 1.04; PROTIME 13.7 Seconds (11.0-16.0)
[2019-03-12 07:50] LABS: BASO# 0.02 X1000 (0.0-0.2); BASO% 0.3 % (0.0-0.8); EOS# 0.08 X1000 (0.0-0.7); EOS% 1.4 % (0.0-10.0); HEMATOCRIT 33.5 % (37.0-47.0); IMM GRAN# 0.02 X1000 (0.0-0.04); IMM GRAN% 0.3 % (0.0-0.5); LYMPH# 1.36 X1000 (1.2-3.4); LYMPH% 23.3 % (20.5-51.1); MCHC 32.8 g/dL (33-37); MCV 94.4 FL (81-99); MONO# 0.83 X1000 (0.11-0.59); MONO% 14.2 % (1.7-9.3); MPV 10.6 FL (7.4-10.4); NEUT# 3.52 X1000 (1.4-6.5); NEUT% 60.5 % (42.2-75.2); PLT 218 X1000 (130-400); RBC 3.55 XMIL (4.2-5.4); RDW 16.3 % (11.5-14.5); WBC 5.83 X1000 (4.8-10.8)
[2019-03-12] MEDS ORDERED: NS 250 ML ONE (07:51)
[2019-03-12 08:10] LABS: CALCIUM 7.1 mg/dL (8.8-10.2); CREATININE 1.8 mg/dL (0.5-0.9); POTASSIUM 3.8 mmol/L (3.5-5.1)
--- NOTE | 2019-03-12 08:14 | EKG Report ---
Test Performed on : 03/12/2019 08:05:28 AM Test Reason : afib Blood Pressure : / mmHG Vent. Rate : 096 BPM Atrial Rate : 096 BPM P-R Int : 174 ms QRS Dur : 070 ms QT Int : 398 ms P-R-T Axes : 069 028 054 degrees QTc Int : 502 ms Sinus rhythm. with premature atrial complexes. Prolonged QT Abnormal ECG When compared with ECG of 11-MAR-2019 11:09, (Unconfirmed) No significant change was found Confirmed by Gasper HOLDEN, P.J.M ([id number]) on 03/12/2019 5:40:52 PM
[2019-03-12] MEDS: NEXIUM PO SCH (09:00)
[2019-03-12] MEDS: XANAX PO SCH ×3 (09:01→20:02)
[2019-03-12] MEDS: KEPPRA PO SCH (09:01)
[2019-03-12] MEDS: ROBAXIN PO SCH ×4 (09:01→20:02)
[2019-03-12] MEDS: CYMBALTA PO SCH (09:01)
[2019-03-12] MEDS: NEURONTIN PO SCH ×3 (09:02→20:02)
--- NOTE | 2019-03-12 09:03 | ECHO REPORT ---
ORDER DATE: 03/11/2019 INTERPRETING PHYSICIAN: Stewart Lama MD. CLINICAL INDICATIONS: A 69-year-old female with atrial fibrillation. M-MODE MEASUREMENTS: Left ventricle end diastole: 4.4 cm. Left ventricle end systole: 3.2 cm. Posterior wall: 0.9 cm. Interventricular septum: 0.8 cm. Left atrium: 3.4 cm. Aortic diameter: 2.9 cm. SUMMARY OF 2-DIMENSIONAL IMAGIN. Left ventricular function is normal. Ejection fraction estimated at 56% to 60%. There is no wall motion abnormality noted. 2. The right ventricle appears to be normal. 3. The aortic valve looks normal. Color flow mapping unremarkable. The patient has some premature atrial beats. 4. The mitral valve shows mild degree of regurgitation. 5. Pulse wave Doppler of mitral inflow shows mild reversal of the E/A ratio, ratio is 0.7. 6. Tissue Doppler of septal and lateral mitral annulus averages 8 cm. 7. There is no diastolic dysfunction. 8. The pulmonic valve looks grossly normal. 9. The tricuspid valve shows mild degree of regurgitation. 10.Pulmonary pressure is estimated at 28 mmHg. 11.There is no pericardial effusion, no mass, and no thrombus. 12.The right-sided chambers do not appear to be particularly dilated. 13.The inferior vena cava is not dilated. 14.There was no pericardial effusion. Clinical correlation is recommended. cc: MD Jena Mcgee CRNP
[2019-03-12] MEDS: NORCO-10 PO PRN ×2 (11:23→19:14)
--- NOTE | 2019-03-12 13:11 | PROGRESS NOTE ---
DATE: 03/12/2019 SUBJECTIVE: Ms. Trammell says she does not feel a whole lot better, but she has not really had a chance to walk. She is not short of breath at rest and not short of breath when she goes to the restroom. She remains afebrile. OBJECTIVE: Vital Signs: Temperature 97.6 degrees, pulse 72, respirations 17, blood pressure 106/49. Eyes: Pupils are equal and round. Lungs: Clear in all lung alonzo. Cardiovascular exam: Regular rhythm and rate without murmur or S3. : Urine output is 1200 mL. X-RAYS: 1. EKG was reviewed from monitor strips. Her echocardiogram was done yesterday. Left ventricular function is normal. Ejection fraction 56 to 60 percent. No wall motion abnormality. Right ventricle appears normal. Aortic valve appears normal. Mitral valve shows mild degree of regurgitation. 2. There is pulse-wave Doppler, mild. Mitral inflow shows mild reversal of the E to A ratio, which is 0.7. No significant valvular dysfunction. Right chambers do not appear to be particularly dilated, and inferior vena cava was not dilated either. 3. V/Q scan with normal study. 4. Her chest x-ray with no evidence of acute disease. LABS: On her lab, hematocrit 33, hemoglobin 11 with an MCV of 94, and her renal function has improved, creatinine from 2.0 to 1.8. We gave her some potassium. Her troponin and CK are unremarkable. So, I do not see any evidence of infection. So, we will watch her today, and I think she may have mainly bronchial irritation. See if maybe she can be discharged tomorrow. cc: David Jeffery MD
[2019-03-12] MEDS ORDERED: MAGNESIUM SULFATE 2 GM/S.W.I. 2 GM/50 ML IVPB IV ONE (17:23)
[2019-03-12] MEDS: LOVENOX SUBQ SCH (18:15)
[2019-03-12] MEDS ORDERED: MAGNESIUM SULFATE 4 GM/S.W.I. 4 GM/100 ML IVPB IV ONE (18:46)
[2019-03-12] MEDS: SEROQUEL PO SCH ×2 (19:53→20:02)
[2019-03-12] MEDS: MAG-OX PO SCH ×2 (19:53→20:02)
[2019-03-12] MEDS: ZOLOFT PO SCH ×2 (19:54→20:02)
[2019-03-13] MEDS: NORCO-10 PO PRN ×3 (04:24→19:58)
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
[2019-03-13 07:56] LABS: CALCIUM 7.1 mg/dL (8.8-10.2); CREATININE 1.4 mg/dL (0.5-0.9); POTASSIUM 2.8 mmol/L (3.5-5.1)
[2019-03-13] MEDS: MAG-OX PO SCH ×2 (08:50→19:59)
[2019-03-13] MEDS: CYMBALTA PO SCH (08:50)
[2019-03-13] MEDS: NEXIUM PO SCH (08:51)
[2019-03-13] MEDS: KEPPRA PO SCH (08:51)
[2019-03-13] MEDS: XANAX PO SCH ×2 (08:51→16:55)
[2019-03-13] MEDS: ROBAXIN PO SCH ×3 (08:51→19:59)
[2019-03-13] MEDS: NEURONTIN PO SCH ×2 (08:51→19:59)
--- NOTE | 2019-03-13 09:32 | PROGRESS NOTE ---
DATE: 03/13/2019 SUBJECTIVE: Ms. Trammell does not feel a whole lot better. Still with marked dyspnea with exertion. No chest pain. Remains afebrile. No pleuritic pain. OBJECTIVE: Vital signs: Temperature 97.8 degrees, pulse 90, respirations 16, blood pressure 122/66. Eyes: Pupils are equal and round. Lungs: Clear in all lung alonzo. Cardiovascular: Regular rhythm and rate without murmur or S3. Abdomen: Soft. Skin: Warm and dry. ASSESSMENT AND PLAN: 1. Basically irregular pulse, sinus tachycardia, premature atrial contractions, in conjunction with profound electrolyte abnormalities, severe hypomagnesemia, and hypokalemia. Lab from this morning: Her magnesium is back up to 3.0 and her potassium was 2.8, so I am going to supplement a little bit of potassium today. Sodium 144, potassium 2.8, chloride 117, BUN 10, creatinine 1.4. 2. Acute kidney injury. Renal function is improved. 3. Persistent watery diarrhea, multiple abdominal surgeries, partial resection of intestine, history of adhesions in the past. 4. Polyneuropathy. 5. Suspect diastolic dysfunction. 6. She has a low vitamin B12 which we will supplement as well. 7. I think we are planning a myocardial perfusion test on Friday per Dr. Lama, and probably get a CT of the chest. cc: David Jeffery MD
[2019-03-13] MEDS: KLOR-CON PO SCH ×2 (10:17→19:59)
[2019-03-13] MEDS: CYANOCOBALAMIN IM SCH (10:18)
[2019-03-13] MEDS: VICON-C PO SCH (10:19)
[2019-03-13] MEDS: NS 1,000 ML IV SCH ×2 (12:10→22:20)
[2019-03-13] MEDS: LOVENOX SUBQ SCH (17:02)
[2019-03-13] MEDS: ZOLOFT PO SCH (19:59)
[2019-03-13] MEDS: SEROQUEL PO SCH (19:59)
[2019-03-14] MEDS: NORCO-10 PO PRN ×3 (03:59→20:09)
--- NOTE | 2019-03-14 09:27 | PROGRESS NOTE ---
DATE: 03/14/2019 SUBJECTIVE: Ms. Trammell says she is feeling better. Feels like she is breathing better. No chest pain. OBJECTIVE: Vital Signs: Temp 97.8 degrees, pulse 78, respirations 19, blood pressure 141/90. HEENT: Pupils are equal and round. Lungs: Clear in all lung alonzo. Cardiovascular: Regular rhythm and rate without murmur or S3. ASSESSMENT AND PLAN: 1. She basically had an irregular pulse, sinus tachycardia, premature atrial contractions, in conjunction with profound electrolyte abnormalities, severe hypomagnesemia, and hypokalemia, which we have replaced. I think the plan is to do a nuclear GXT or Lexiscan tomorrow. 2. Persistent watery diarrhea, which is improved. 3. Chronic polyneuropathy. 4. Suspected diastolic heart failure. 5. She had evidence of B12 deficiency, which we have supplemented. REVIEW OF LABORATORY: Hematocrit 33, hemoglobin 11, MCV 94. Electrolytes from yesterday. Will check another basic metabolic profile today. We replaced her potassium and her magnesium. cc: David Jeffery MD
[2019-03-14] MEDS: KLOR-CON PO SCH ×2 (09:36→20:09)
[2019-03-14] MEDS: VICON-C PO SCH (09:36)
[2019-03-14] MEDS: KEPPRA PO SCH (09:36)
[2019-03-14] MEDS: MAG-OX PO SCH ×2 (09:36→20:08)
[2019-03-14] MEDS: NEXIUM PO SCH (09:36)
[2019-03-14] MEDS: CYMBALTA PO SCH (09:36)
[2019-03-14] MEDS: NEURONTIN PO SCH ×2 (09:37→20:09)
[2019-03-14] MEDS: XANAX PO SCH ×2 (09:37→17:21)
[2019-03-14] MEDS: CYANOCOBALAMIN IM SCH (09:37)
[2019-03-14] MEDS: ROBAXIN PO SCH ×3 (09:42→20:08)
[2019-03-14] MEDS: NS 1,000 ML IV SCH ×2 (12:13→21:52)
[2019-03-14 13:34] LABS: CALCIUM 7.2 mg/dL (8.8-10.2); CREATININE 1.1 mg/dL (0.5-0.9); MAGNESIUM 1.9 mg/dL (1.5-2.7)
[2019-03-14] MEDS: LOVENOX SUBQ SCH (17:22)
[2019-03-14] MEDS: SEROQUEL PO SCH (20:08)
[2019-03-14] MEDS: ZOLOFT PO SCH (20:10)
[2019-03-15] MEDS: NORCO-10 PO PRN ×2 (07:23→15:32)
[2019-03-15 07:55] LABS: CALCIUM 7.4 mg/dL (8.8-10.2); MAGNESIUM 1.6 mg/dL (1.5-2.7); POTASSIUM 5.2 mmol/L (3.5-5.1)
[2019-03-15] MEDS: NS 1,000 ML IV SCH (09:07)
[2019-03-15] MEDS ORDERED: LEXISCAN ONE (11:21)
[2019-03-15] MEDS ORDERED: AMINOPHYLLINE ONE (11:39)
--- NOTE | 2019-03-15 12:39 | PROGRESS NOTE ---
DATE: 03/15/2019 SUBJECTIVE: Ms. Trammell says she is breathing better, feels a little better. She is planning on getting a Myoview GXT today. OBJECTIVE: Vital Signs: Temperature 97.7 degrees, pulse 78, respirations 16, blood pressure 135/85. Eyes: Pupils are equal and round. Lungs: Lungs are clear in all lung alonzo. Cardiovascular exam: Regular rhythm and rate without murmur or S3. Abdomen: Soft. Skin: Skin is warm and dry. ASSESSMENT AND PLAN: 1. Presented with complaints of irregular pulse, appeared to have sinus tachycardia and possible premature atrial complexes, severe hypomagnesemia, hypokalemia which we replaced. She is feeling better. She will get a Myoview GXT today. 2. Watery diarrhea, which is improved. 3. Chronic polyneuropathy. 4. Suspect diastolic heart failure. 5. Evidence of B 12 deficiency. So, we will see what her GXT shows. cc: David Jeffery MD
[2019-03-15] MEDS: CYMBALTA PO SCH (13:19)
[2019-03-15] MEDS: CYANOCOBALAMIN IM SCH (13:19)
[2019-03-15] MEDS: NEURONTIN PO SCH (13:21)
[2019-03-15] MEDS: KEPPRA PO SCH (13:21)
[2019-03-15] MEDS: NEXIUM PO SCH (13:21)
[2019-03-15] MEDS: ROBAXIN PO SCH ×2 (13:21→13:36)
[2019-03-15] MEDS: VICON-C PO SCH (13:21)
[2019-03-15] MEDS: MAG-OX PO SCH (13:21)
[2019-03-15] MEDS: KLOR-CON PO SCH (13:21)
[2019-03-15] MEDS: XANAX PO SCH (13:22)
--- NOTE | 2019-03-15 15:33 | CARDIOLOGY PROGRESS NOTE ---
DATE: 03/15/2019 CHIEF COMPLAINT: Irregular heart beat, weakness. SUBJECTIVE: Ms. Trammell has completed her stress test. She has not had any further issues over the weekend. Her electrolytes have been corrected. As of yesterday, her magnesium was 1.9 and potassium was 4.0. Today her magnesium is down to 1.6 and potassium up to 2.5. She is basically feeling back to her normal self. OBJECTIVE: VITAL SIGNS: Blood pressure 135/85, temperature 97.7, pulse 98, respirations 16. GENERAL: The patient is awake, alert and oriented in no distress. HEENT: Unremarkable. LUNGS: Clear to auscultation and percussion although there is some decreased intensity of breath sounds bilaterally. CARDIOVASCULAR: Regular rhythm. I do not hear a gallop or murmur. ABDOMEN: Nontender. EXTREMITIES: No edema. NEUROLOGIC: Nonfocal, moving all 4 extremities. She is a little shaky today. IMPRESSION: 1. Patient who has presented with vague symptoms, irregular pulse, suspected to have atrial fibrillation, however, this was not the case. 2. Persistent watery diarrhea. 3. Suspect polyneuropathy. 4. Possible diastolic heart failure. 5. Hypomagnesemia, hypokalemia that has been corrected. RECOMMENDATIONS: The patient has completed a Lexiscan and stress test today and the results are that her ECG response was normal and her perfusion images are normal with a normal left ventricular ejection fraction. Based on that study, I have a very low index of suspicion that this patient may have significant coronary artery disease. At this time, from my viewpoint, she may be discharged, however, I have explained to her that she really needs to pursue evaluation by a manufacturing management associate regarding her nutritional deficiencies. This needs to be corrected. She will follow up with her usual linen supervisor, Dr. Elizalde. cc: Stewart Lama MD
[2019-03-15 15:38] VITALS: BP 124/78
--- NOTE | 2019-03-15 16:19 | Diag Imaging Result Document ---
PROCEDURE NAME: MYOCARDIAL PERF SCAN, STR/REST - 03/15/2019 PROCEDURE: Lexiscan Cardiolite stress test. FINDINGS: Lexiscan was infused per standard protocol. There was no chest pain. Stress electrocardiogram was negative for ischemia. The patient developed nausea, 125 mg of aminophylline was given intravenously. Cardiolite was injected, 10 millicuries of Cardiolite was injected for the rest phase; 31.1 mCi of Cardiolite was injected for the stress phase. Gated SPECT images were obtained in standard views. Images revealed normal left ventricular cavity size. Normal myocardial perfusion. Left ventricular ejection fraction by gated SPECT was 69%. CONCLUSIONS: 1. No chest pain. 2. Negative Lexiscan stress electrocardiogram. 3. Normal myocardial perfusion. 4. Left ventricular ejection fraction 69%. cc: MD Stewart Ng MD
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
== END 2019-03-15 17:45 | disposition home or self-care (01) | DRG 641 ==
LOC: ED 10:55 → EDIPHOLD 14:45 → 3N 16:49
PROVIDERS: ATTEND Emergency Medicine